=== PATIENT | male | born 1940 | race Caucasian/White ===

== ENCOUNTER 2016-11-04 10:54 | Outpatient (CLI) | payer MEDICARE ==
[2016-11-04 13:01] LABS: #Basophils 0.1 thou/uL (0.0-0.2); #Eosinphils 0.1 thou/uL (0.0-0.7); #Lymphocytes 1.5 thou/uL (1.20-3.40); #Monocytes 0.6 thou/uL (0.11-0.59); #Neutrophils 3.2 thou/uL (1.40-6.50); %Basophils 1.2 % (0.0-1.0); %Lymphocytes 27.1 % (21.0-51.0); %Monocytes 11.7 % (0.0-10.0); Hemoglobin 14.9 g/dL (14.0-18.0); Mean Corpuscular Hemoglobin 32.3 pg (27.0-31.0); Mean Platelet Volume 7.8 fL (7.4-10.4); Platelet Count 178 thou/uL (130-400); RBC Distribution Width 13.3 % (11.5-14.5); Red Blood Cell (RBC) Count 4.61 mill/uL (4.70-6.10); White Blood Cell (WBC) Count 5.4 thou/uL (4.8-10.8)
[2016-11-04 13:04] LABS: ALT (SGPT) 12 U/L (8-55); AST (SGOT) 21 U/L (5-34); Albumin 3.9 g/dL (3.4-4.8); Alkaline Phosphatase 70 U/L (40-150); Anion Gap 16 mmol/L (10-20); BUN (Urea Nitrogen) 13 mg/dL (8.4-25.7); Bilirubin, Total 0.6 mg/dL (0.2-1.2); Calc. Creatinine Clearance 0 mL/min (70-130); Calcium 9.3 mg/dL (7.8-10.44); Carbon Dioxide 30 mmol/L (23-31); Cardiac Risk 3.3 (Less than 4.5); Chloride 101 mmol/L (98-107); Cholesterol 208 mg/dl (< 200 Desired); Estimated GFR-MDRD 86; Glucose 96 mg/dL (83-110); HDL Cholesterol 64 mg/dL (>60 Neg Risk); LDL Cholesterol, Calculated 115 mg/dL; Potassium 4.1 mmol/L (3.5-5.1); Protein, Total 5.9 g/dL (5.8-8.1); Sodium 143 mmol/L (136-145); Triglycerides 143 mg/dL (Less than 150)
== END 2016-11-04 10:55 | disposition home or self-care (01) ==
LOC: HPCALD 10:54
PROVIDERS: ATTEND Family Medicine
DX: I50.42 Chronic combined systolic (congestive) and diastolic (congestive) heart failure (principal); J43.9 Emphysema, unspecified; I48.2 Chronic atrial fibrillation
CPT/HCPCS: 36415; 80053; 80061; 83880; 84443; 85025

== ENCOUNTER 2017-02-01 14:45 | Outpatient (CLI) | payer MEDICARE ==
--- NOTE | 2017-02-01 19:02 | RAD ---
CHEST TWO VIEWS: Date: 02-01-17 Comparison: 06-10-16, CT angio of the chest 06-10-16 FINDINGS: This patient's chest is difficult to interpret due to severe scoliosis. There is considerable density in the right hilar/perihilar region, though differences from before are only slight. It would be an y easy to hide a mass in this area. The left lung is relatively clear. The heart is enlarged but unch anged in size. There is no pleural effusion or vascular congestion. Severe degenerative changes are s een in the shoulders. IMPRESSION: Chronic changes with substantial right perihilar opacity. The prior CT showed much of this to be vasc ular in nature and due to deformity secondary to the patient's scoliosis. Nevertheless, if he is havi ng ongoing hemoptysis, then sooner or later one may need to once again do a chest CT to examine this area. Even substantial pathology could be very easily hidden here. Code T POS: HOME
== END 2017-02-01 14:46 | disposition home or self-care (01) ==
LOC: BURRAD 14:45
PROVIDERS: ATTEND Family Medicine
DX: R04.2 Hemoptysis (principal); R91.8 Other nonspecific abnormal finding of lung field; M41.9 Scoliosis, unspecified
CPT/HCPCS: 71020

== ENCOUNTER 2017-02-09 13:15 | Outpatient (CLI) | payer MEDICARE ==
--- NOTE | 2017-02-09 22:01 | CT ---
CT OF THE THORAX WITH CONTRAST 02/09/[address] of the chest was done after injection of IV contrast. Comparison was made with a prior CT d ated 06/19/16 done at [facility]. The pulmonary arteries are large which may indicate pulmonary arterial hypertension. The right pulmon stoney artery was 3.7 cm wide. There is no sign of aortic dissection or aneurysm. A few faint calcificat ions are seen in the LAD but they are no excessive. There is no sign of pericardial fluid, mediastina l mass, or significant adenopathy. In general, the arteries are rather ectatic. There is no sign of a ortic aneurysm or dissection. Regarding the lungs, there are chronic changes throughout but particularly in the right lower lobe ne ar the costophrenic angle. This area is distorted due to the patient's severe scoliosis. The appearan ce here is that of chronic infection, but it is no worse than the May scan. A few areas of scarring are seen elsewhere such as in the left upper lobe and to a lesser extent the left lower lobe. No new major lobar infiltrate was seen. No mass was noted. The prominence of the right hilum is indeed, cau sed by very large pulmonary arterial branches. IMPRESSION: 1. Chronic parenchymal changes in the lungs. The most notable is in the right costophrenic angle that has the appearance of chronic infection, though it is no worse than the prior study. 2. Cardiomegaly but no evidence of mediastinal mass or adenopathy. 3. Severe scoliosis. POS: HOME
== END 2017-02-09 13:16 | disposition home or self-care (01) ==
LOC: BURCT 13:15
PROVIDERS: ATTEND Family Medicine
DX: R04.2 Hemoptysis (principal); I51.7 Cardiomegaly; M41.9 Scoliosis, unspecified
CPT/HCPCS: 71260

== ENCOUNTER 2018-08-02 21:53 | Observation (INO) | payer MEDICARE ==
[2018-08-02 23:20] LABS: #Basophils 0.1 thou/uL (0.0-0.2); #Lymphocytes 0.8 thou/uL (1.20-3.40); #Monocytes 0.7 thou/uL (0.11-0.59); %Basophils 0.8 % (0.0-1.0); %Eosinophils 0.2 % (0.0-10.0); %Lymphocytes 10.7 % (21.0-51.0); %Monocytes 9.7 % (0.0-10.0); %Neutrophils 78.6 % (42.0-75.0); Hemoglobin 9.4 g/dL (14.0-18.0); Mean Corpuscular HGB CONC 30.2 g/dL (32.0-36.0); Mean Corpuscular Hemoglobin 29.6 pg (27.0-31.0); Mean Corpuscular Volume 97.9 fL (78.0-98.0); Mean Platelet Volume 7.8 fL (7.4-10.4); Platelet Count 209 thou/uL (130-400); Red Blood Cell (RBC) Count 3.19 mill/uL (4.70-6.10); White Blood Cell (WBC) Count 7.6 thou/uL (4.8-10.8)
--- NOTE | 2018-08-02 23:26 | CT ---
CT HEAD WITHOUT IV CONTRAST COMPARISON: None HISTORY: Altered mental status. TECHNIQUE: Axial CT imaging at 5 mm intervals from vertex through skull base without contrast FINDINGS: There is a low-density area seen within the left frontal parietal region likely due to remote area of infarction. There is no evidence of an acute infarction, hemorrhage, mass effect, or midline shift. There is mild cerebral volume loss. The ventricular system is normal in size, shape, and posit ion for the degree of sulcal atrophy. Prominent vascular calcifications are seen in the carotid siphons and involving the distal vertebral arteries. Visualized paranasal sinuses are clear. The lateral masses of the C1 vertebral body to be fused with the occipital condyles. There is rotatio n at the C1-2 articulation likely due to patient's head rotated to the left. IMPRESSION: 1. No acute intracranial abnormality demonstrated.
[2018-08-02 23:33] LABS: Acetaminophen Less than 6.0 mcg/mL (10.0-30.0); Alcohol Less than 10 mg/dL (Less than 10); Salicylate Less than 8.0 mg/dL (15.0-30.0)
[2018-08-02 23:34] LABS: ALT (SGPT) 29 U/L (8-55); AST (SGOT) 37 U/L (5-34); Albumin 2.7 g/dL (3.4-4.8); Alkaline Phosphatase 90 U/L (40-150); Anion Gap 15 mmol/L (10-20); BUN (Urea Nitrogen) 17 mg/dL (8.4-25.7); Calc. Creatinine Clearance 0 mL/min (70-130); Calcium 9.3 mg/dL (7.8-10.44); Carbon Dioxide 34 mmol/L (23-31); Estimated GFR-MDRD Greater than 90; Globulin 2.2 g/dL (2.4-3.5); Glucose 115 mg/dL (83-110); Protein, Total 4.9 g/dL (5.8-8.1)
[2018-08-02 23:45] LABS: Chloride 99 mmol/L (98-107); Potassium 4.5 mmol/L (3.5-5.1); Sodium 142 mmol/L (136-145)
[2018-08-02 23:48] LABS: Bilirubin, Total 0.4 mg/dL (0.2-1.2)
[2018-08-02 23:52] LABS: CKMB 3.3 ng/mL (0-6.6)
[2018-08-03] MEDS ORDERED: cefTRIAXone\\ROCEPHIN 1 GM VIAL ONE (00:04)
[2018-08-03] MEDS ORDERED: Ondansetron PF 4 MG/2 ML Vial IVP PRN (01:13)
[2018-08-03] MEDS ORDERED: Ondansetron ODT 4 MG TAB SL PRN (01:13)
[2018-08-03] MEDS ORDERED: Acetaminophen 325 MG TAB PO PRN (01:13)
[2018-08-03] MEDS ORDERED: traMADol HCl 50 MG TAB PO SCH (07:15)
[2018-08-03] MEDS ORDERED: predniSONE 20 MG TAB PO SCH (08:00)
[2018-08-03 08:23] VITALS: BP 120/60; TEMP 97.6
--- NOTE | 2018-08-03 08:26 | RAD ---
PORTABLE CHEST: Date: 08-02-18 An AP portable film at 2332 is compared with the prior study of 04-29-18 done at [facility]. FINDINGS: Cardiomegaly and some mild vascular congestion is present. There is a persisting density seen along t he right heart border that would potentially be in the right lower lobe. It really does not seem much different than the prior study. It has been postulated previously that this could be a consequence o f the patient's scoliosis and also being rotated somewhat. Ultimately, a CT would be needed to tell i f this is infiltrate, fat pad, or other pathology. The AICD remains in place. IMPRESSION: 1. Slight vascular congestion. Marked cardiomegaly. The appearance is not substantially different philip n the prior study. 2. Right lower lobe density near the right heart border which has really not changed substantially si nce 3-1. See discussion above. POS: HOME
[2018-08-03] MEDS ORDERED: Non-Formulary Item 1 EACH (Vancomycin/0.9 % Sod Chloride [Vancomycin 1 G/100ml-0.9% Nacl] IVPB SCH (09:00)
[2018-08-03] MEDS ORDERED: Non-Formulary Item 1 EACH (Fluticasone/Vilanterol [Breo Ellipta] 1 INH) IH SCH (09:00)
[2018-08-03] MEDS: Colchicine 0.6 MG TAB PO SCH (09:28)
[2018-08-03] MEDS: Furosemide 40 MG TAB PO SCH (09:30)
[2018-08-03] MEDS: Atorvastatin Calcium 10 MG TAB PO SCH (09:30)
[2018-08-03] MEDS: Digoxin 0.125 MG TAB PO SCH (09:30)
[2018-08-03] MEDS: predniSONE 20 MG TAB PO SCH (09:30)
[2018-08-03] MEDS: Aspirin 81 mg Enteric Coated Tablet PO SCH (09:31)
[2018-08-03] MEDS: Lisinopril 5 MG TAB PO SCH (09:31)
[2018-08-03] MEDS: Potassium Chloride 20 MEQ TAB PO SCH (09:31)
[2018-08-03] MEDS: Loratadine 10 MG TAB PO SCH (09:32)
[2018-08-03] MEDS: Multivit, Therapeutic 1 TAB PO SCH (09:32)
[2018-08-03] MEDS: Apixaban 5 MG TAB PO SCH (09:32)
[2018-08-03] MEDS: Sulfameth/Trimethoprim DS 800-160mg TAB PO SCH (09:32)
[2018-08-03] MEDS: Carvedilol 3.125 MG TAB PO SCH (09:33)
[2018-08-03] MEDS: Famotidine 20 MG TAB PO SCH (09:34)
[2018-08-03] MEDS: traMADol HCl 50 MG TAB PO PRN (09:43)
[2018-08-03] MEDS: Polyethylene Glycol 3350 17 GM Packet PO SCH (09:44)
[2018-08-03] MEDS: Fluticasone Propionate Nasal Spray 16 gm Bottle NASAL SCH (09:44)
[2018-08-03] MEDS: ACETAMINOPHEN PO SCH (09:52)
[2018-08-03] MEDS: TRAMADOL HCL PO SCH (09:52)
[2018-08-03] MEDS: TERBINAFINE 1% TOP SCH (09:57)
[2018-08-03] MEDS: DOFETILIDE 250 MCG PO SCH (09:58)
[2018-08-03] MEDS ORDERED: ALBUTEROL SULFATE INH SCH (11:00)
--- NOTE | 2018-08-03 11:30 | HP ---
H AND P OBSERVATION ADMISSION WITH SAME-DAY DISCHARGE CHIEF COMPLAINT: Mental status change. HISTORY OF PRESENT ILLNESS: A 78-year-old male, resident of [facility], who was brought to the emergency department secondary to concerns for change in his behavior; apparently becoming more agitated and aggressive toward staff and family. The patient reports this is secondary only to him wanting to sleep, as he was repeatedly being woken up, which caused his agitation. Daughter, who was with the patient in the ER, reported to the ED physician that his behavior was unusual. The patient demonstrated to be completely alert and oriented. Workup of the patient was mostly reassuring with brain CT showing no acute intracranial abnormality. Lab work revealed no leukocytosis, normal lactic acid , and toxicology report was normal. A chest x-ray was concerning for a left-sided pneumonia, and thus, he was started on vancomycin in the emergency department. The patient has been on a course of oral Bactrim started at the [facility] for cellulitis of the left upper extremity. Review of the patient this morning again shows that he is fully alert and oriented. He is cooperative on exam. He reports to feel at his baseline with no other specific new concerns. He is amenable to discharge back to the [facility] today. Of note, the patient had emptied his bladder secondary to incontinence in the emergency department, and thus, the urinalysis was not obtained there. We will plan to obtain a urinalysis prior to the patient's discharge back to the [facility] and start him on an empiric course of p.o. Levaquin. PAST MEDICAL HISTORY: Includes oxygen-dependent COPD, atrial fibrillation, congestive heart failure, history of CVA, severe kyphoscoliosis, history of remote polio, obstructive sleep apnea, and history of MRSA bacteremia. FAMILY HISTORY: Noncontributory. SOCIAL HISTORY: Former smoker, who quit many years ago. No EtOH or illicit drug use. He is currently living at [facility]. ALLERGIES: IBUPROFEN. PAST SURGICAL HISTORY: Two hernia repairs, left elbow cyst drainage, and right forearm surgery. CURRENT MEDICATIONS: 1. Tylenol 650 mg p.o. q.4 hours p.r.n. 2. Albuterol sulfate nebs 2 puffs q.4 hours p.r.n. 3. Eliquis 2.5 mg b.i.d. 4. Aspirin 81 mg daily. 5. Atorvastatin 20 mg daily. 6. Carvedilol 6.25 mg b.i.d. 7. Cholecalciferol 5000 units daily. 8. Colchicine 0.6 mg b.i.d. 9. Digoxin 0.125 mg daily. 10. Famotidine 20 mg b.i.d. 11. Flonase daily. 12. Lasix 40 mg p.o. daily. 13. Gabapentin 100 mg q.8 hours as scheduled. 14. Lisinopril 2.5 mg daily. 15. Claritin 10 mg daily. 16. Breo inhalation. 17. Dulera 2 puffs inhaled daily. 18. Protonix 40 mg daily. 19. MiraLAX 17 g daily. 20. Potassium chloride 20 mEq p.o. daily. 21. Prednisone 20 mg p.o. daily. 22. Bactrim 1 tablet p.o. b.i.d. started at retirement. 23. Tramadol 50 mg p.o. q.4 hours p.r.n. REVIEW OF SYSTEMS: GENERAL: The patient denies fever, chills, or diaphoresis. EARS, NOSE, AND THROAT: Denies sore throat, nasal drainage, or congestion. CARDIOVASCULAR: Denies chest pain or palpitations. RESPIRATORY: Denies shortness of breath. GASTROINTESTINAL: Denies abdominal pain, nausea, vomiting, diarrhea, or constipation. GENITOURINARY: Denies dysuria. MUSCULOSKELETAL: Denies joint swelling. DERM: Denies rash. NEUROLOGIC: Denies headache. LABORATORY DATA: White blood cell count 7.6, hemoglobin 9.4, hematocrit 31.2, platelets 209. Sodium 142, potassium 4.5, BUN 17, creatinine 0.77 with a GFR greater than 90, glucose 115. Lactic acid 1.2. TSH 0.50. AST 37, ALT 29. IMAGING DATA: Brain CT showed no acute intracranial process. Chest x-ray; official read is pending, but preliminary read is concerning for left-sided pneumonia. PHYSICAL EXAMINATION: VITAL SIGNS: Temperature is 97.8, pulse is 79, blood pressure 119/60, respirations 22, oxygen is 97% on 2 L. GENERAL: The patient is fully alert and oriented, in no acute distress. HEAD, EYES, EARS, NOSE, AND THROAT: Within normal limits. NECK: Supple with no lymphadenopathy. CARDIOVASCULAR: Regular rate and rhythm with a 2/6 murmur. RESPIRATORY: No respiratory distress. Nasal cannula is in place. No wheezes. No rhonchi. ABDOMEN: Soft and nontender. Normal bowel sounds. EXTREMITIES: Trace edema to the bilateral lower extremities. He has a bandage to the left hand from an abrasion. SKIN: Erythema to the left antecubital fossa. NEUROLOGIC: Nonfocal with cranial nerves 2 through 12 grossly intact. ASSESSMENT AND PLAN: 1. Encephalopathy. This appears to be more likely secondary to agitation from lack of sleep as his labs are reassuring. We will obtain a urinalysis prior to the patient's discharge back to the [facility]. As noted, the patient is completely alert and oriented and cooperative on exam. 2. Pneumonia, left side, pending official radiological read. We will treat the patient with a course of p.o. Levaquin, 7 days, 500 mg to complete at [facility]. 3. Chronic obstructive pulmonary disease, oxygen-dependent. The patient is at his baseline respiratory status. We will resume his usual medications for this. 4. History of atrial fibrillation. The patient has a pacer in. Regular rate and rhythm. He is on Eliquis appropriately. 5. History of congestive heart failure. The patient is euvolemic. We will resume his usual Lasix dosing. 6. Cellulitis of the left upper extremity. The patient has been started on Bactrim for this. As noted, he has no leukocytosis. He will complete his course of Bactrim at the [facility]. DISPOSITION: The patient is appropriate for discharge back to [facility] to complete the specified antibiotic courses. Job ID: [id number] [facility]
[2018-08-03] MEDS ORDERED: Vancomycin HCl 1 GM in Sodium Chloride 0.9% 250 ML 250 ML IVPB SCH (12:00)
[2018-08-03] MEDS ORDERED: Gabapentin 100 MG CAP PO SCH (14:00)
[2018-08-03] MEDS ORDERED: Mometasone/Formoterol 60 PUFF AER INH SCH (19:00)
== END 2018-08-03 11:56 ==
LOC: BURERS 21:53 → BURMED 08-03 00:27
PROVIDERS: ADMIT Family Medicine; ATTEND Family Medicine
DX: G93.40 Encephalopathy, unspecified (principal); J18.9 Pneumonia, unspecified organism; J44.9 Chronic obstructive pulmonary disease, unspecified; I48.91 Unspecified atrial fibrillation; I50.9 Heart failure, unspecified; L03.114 Cellulitis of left upper limb; I51.7 Cardiomegaly; G47.33 Obstructive sleep apnea (adult) (pediatric); Z99.81 Dependence on supplemental oxygen; Z86.73 Personal history of transient ischemic attack (TIA), and cerebral infarction without residual deficits; Z87.891 Personal history of nicotine dependence; Z88.6 Allergy status to analgesic agent; Z79.01 Long term (current) use of anticoagulants; Z79.51 Long term (current) use of inhaled steroids; Z79.2 Long term (current) use of antibiotics; Z79.82 Long term (current) use of aspirin; Z79.891 Long term (current) use of opiate analgesic; Z79.899 Other long term (current) drug therapy
CPT/HCPCS: 70450; 71045; 80053; 80307; 82553; 83605; 84443; 84484; 96374; 96375; G0378; J0696; J3370; J7620

== ENCOUNTER 2018-09-09 17:48 | Emergency (ER) | payer MEDICARE ==
[2018-09-09 18:24] LABS: #Basophils 0.1 thou/uL (0.0-0.2); #Monocytes 0.6 thou/uL (0.11-0.59); #Neutrophils 5.5 thou/uL (1.40-6.50); %Basophils 0.9 % (0.0-1.0); %Eosinophils 0.1 % (0.0-10.0); %Lymphocytes 13.7 % (21.0-51.0); %Monocytes 8.3 % (0.0-10.0); Hemoglobin 10.1 g/dL (14.0-18.0); Mean Corpuscular HGB CONC 29.6 g/dL (32.0-36.0); Mean Corpuscular Hemoglobin 28.9 pg (27.0-31.0); Mean Corpuscular Volume 97.6 fL (78.0-98.0); Mean Platelet Volume 7.6 fL (7.4-10.4); Platelet Count 219 thou/uL (130-400); Red Blood Cell (RBC) Count 3.51 mill/uL (4.70-6.10); White Blood Cell (WBC) Count 7.2 thou/uL (4.8-10.8)
[2018-09-09 18:40] LABS: ALT (SGPT) 15 U/L (8-55); AST (SGOT) 23 U/L (5-34); Albumin 3.2 g/dL (3.4-4.8); Alkaline Phosphatase 82 U/L (40-150); Anion Gap 15 mmol/L (10-20); BUN (Urea Nitrogen) 23 mg/dL (8.4-25.7); Bilirubin, Total 0.3 mg/dL (0.2-1.2); Calc. Creatinine Clearance 0 mL/min (70-130); Carbon Dioxide 31 mmol/L (23-31); Chloride 101 mmol/L (98-107); Estimated GFR-MDRD 81; Globulin 2.4 g/dL (2.4-3.5); Glucose 126 mg/dL (83-110); Potassium 4.9 mmol/L (3.5-5.1); Protein, Total 5.6 g/dL (5.8-8.1); Sodium 142 mmol/L (136-145)
[2018-09-09 18:58] LABS: CKMB 2.9 ng/mL (0-6.6)
--- NOTE | 2018-09-09 19:45 | CT ---
CT OF THE BRAIN WITHOUT CONTRAST: 09/09/[address] was done following trauma. Comparison was made with a 08/02/18 study. Diffuse atrophy is present as usual. The ventricle are normal in size for age and atrophy. No intracr anial bleeding, or extra-axial hematoma was seen. There is no sign of mass or edema. A low density ar ea in the left parietal region was present on the prior and has not changed. It is most likely an old infarct. Some soft tissue swelling is seen on the left temporal/posterior frontal region in the scal p. The underlying skull appears intact. The sphenoid sinus and visible paranasal sinuses are clear. IMPRESSION: Soft tissue swelling on the left side. No acute intracranial findings. Prior infarct, left parietal. POS: HOME
--- NOTE | 2018-09-09 20:33 | RAD ---
LEFT FOOT THREE VIEWS: 09/09/18 There is a fracture at the base of the proximal phalanx of the great toe. There is little or no displ acement. The remainder of the foot appeared to have no acute changes. There may have been old trauma to the distal fifth metatarsal. Pes planus is present. There is a bony beaking of the anterior part o f the talus at the talonavicular joint. IMPRESSION: Acute fracture at the base of the proximal phalanx of the great toe. Code T POS: HOME
== END 2018-09-09 20:31 | disposition short-term general hospital (02) ==
LOC: BURERS 17:48
DX: R55 Syncope and collapse (principal); S91.112A Laceration without foreign body of left great toe without damage to nail, initial encounter; J44.9 Chronic obstructive pulmonary disease, unspecified; I50.9 Heart failure, unspecified; Z87.891 Personal history of nicotine dependence; Z86.73 Personal history of transient ischemic attack (TIA), and cerebral infarction without residual deficits; Z79.899 Other long term (current) drug therapy; Z79.51 Long term (current) use of inhaled steroids; W19.XXXA Unspecified fall, initial encounter
CPT/HCPCS: 70450; 80053; 82553; 83605; 83880; 84484; 85025; 93005

== ENCOUNTER 2019-11-27 12:23 | Outpatient (CLI) | payer MEDICARE, MEDICAID ==
--- NOTE | 2019-11-27 21:15 | RAD ---
CHEST TWO VIEWS: Date: 11-27-2019 FINDINGS: Cardiomegaly is about the same as before. The vessels do not appear overtly congested. Severe scolios is markedly decreases the sensitivity of the study. Opacity to the right of the heart seems chronic i n this patient. There is a small patch near the right costophrenic angle which may be a new early inf iltrate. In the left lung, I see no major infiltrate. I believe most of what is seen is probably scar ring from prior infection. An AICD remains in place. IMPRESSION: Cardiomegaly and chronic changes. Low sensitivity study. I cannot exclude a very minor infiltrate in the right costophrenic angle region. Code T POS: HOME
== END 2019-11-27 12:24 | disposition home or self-care (01) ==
LOC: BUREKG 12:23
PROVIDERS: ATTEND Registered Nurse Community Health
DX: I50.20 Unspecified systolic (congestive) heart failure (principal); R06.02 Shortness of breath; I51.7 Cardiomegaly
CPT/HCPCS: 71046; 93005; 93010

== ENCOUNTER 2019-12-25 16:28 | Outpatient (CLI) | payer MEDICARE, MEDICAID ==
--- NOTE | 2019-12-25 18:23 | RAD ---
CHEST TWO VIEWS: Date: 12-25-2019 Note: Due to the patient's very severe scoliosis, the sensitivity of this study is quite low. CT woul d be best at showing any fine detail in this patient's chest. FINDINGS: Moderate cardiomegaly is the same as before. There is no vascular congestion, edema, or large pleural effusion present. The density seen to the right of the heart is a constant in this patient on older films, and looking at a prior CT of the abdomen, it is actually his truly severe scoliosis that cause s the shadow. As on the prior exam, there is a little patchy density or two near the right costophren ic angle. If anything, this is clearer today. Additionally, some linear streaking was seen of the neida gula previously on the left side. This is resolved. IMPRESSION: Chronic changes but no definite acute findings. The lung bases are actually a bit clearer today than they were last month. POS: HOME
== END 2019-12-25 16:29 | disposition home or self-care (01) ==
LOC: BURRAD 16:28
PROVIDERS: ATTEND Registered Nurse Community Health
DX: R06.89 Other abnormalities of breathing (principal)
CPT/HCPCS: 71046; 87070; 87205

== ENCOUNTER 2019-12-28 23:06 | Outpatient (CLI) | payer MEDICARE, MEDICAID ==
[2019-12-28 23:11] LABS: Bilirubin Negative (Negative); Blood, Urine Negative (Negative); Clarity Clear (Clear); Glucose, Urine (Dipstick) Negative (Negative); Ketone, Urine Negative (Negative); Leukocyte Negative (Negative); Nitrite Negative (Negative); Protein, Urine (Dipstick) Negative (Neg-Trace); Specific Gravity, Urine 1.025 (1.005-1.030); Urobilinogen 0.2 mg/dL (Less than 2); pH, Urine 5.5 (5.0-9.0)
[2019-12-28 23:30] LABS: Bacteria/HPF Rare-Few HPF (None Seen); RBC/HPF 0-3 HPF (0-3); Squamous Epithelial 0-3 HPF (0-3); WBC/HPF 0-3 HPF (0-3)
== END 2019-12-28 23:07 | disposition home or self-care (01) ==
LOC: BURMANOR 23:06
PROVIDERS: ATTEND Registered Nurse Community Health
DX: R06.89 Other abnormalities of breathing (principal)
CPT/HCPCS: 81001